=== PATIENT | male | born 1980 | race African-American/Black ===

== ENCOUNTER 2017-03-02 08:40 | Emergency (ER) | payer OTHER ==
[~2017-03-02] VITALS: Ht 170.2 cm; Wt 52.8 kg
[2017-03-02] MEDS ORDERED: TYLENOL WITH C1 EACH PO (11:09)
[2017-03-02] MEDS ORDERED: ERYTHROMYC1 APPLICAT LEFT EYE (11:09)
[2017-03-02 11:31] VITALS: BP 156/108
== END 2017-03-02 11:32 | disposition home or self-care (01) ==
LOC: EME → EDBD 08:40 → EME 08:40
DX: S02.92XA Unspecified fracture of facial bones, initial encounter for closed fracture (principal); S02.2XXA Fracture of nasal bones, initial encounter for closed fracture; S05.12XA Contusion of eyeball and orbital tissues, left eye, initial encounter; H11.32 Conjunctival hemorrhage, left eye; W18.30XA Fall on same level, unspecified, initial encounter; Y93.41 Activity, dancing; F17.200 Nicotine dependence, unspecified, uncomplicated
CPT/HCPCS: 70450; 70486; 99281; 99284

== ENCOUNTER 2017-11-22 12:42 | Emergency (ER) | payer OTHER ==
[~2017-11-22] VITALS: Ht 170.2 cm; Wt 57.4 kg
[~2017-11-22 12:42] MED LIST: ERYTHROMYC1 APPLICAT LEFT EYE; TYLENOL WITH C1 EACH PO
[2017-11-22] MEDS ORDERED: NORCO 5/3251 TABLET PO (13:47)
[2017-11-22 14:06] VITALS: BP 115/84
== END 2017-11-22 14:07 | disposition home or self-care (01) ==
LOC: EME 12:42
DX: S00.83XA Contusion of other part of head, initial encounter (principal); S39.012A Strain of muscle, fascia and tendon of lower back, initial encounter; S06.9X9A Unspecified intracranial injury with loss of consciousness of unspecified duration, initial encounter; Y00.XXXA Assault by blunt object, initial encounter; F17.200 Nicotine dependence, unspecified, uncomplicated; Z88.6 Allergy status to analgesic agent
CPT/HCPCS: 70450; 72100; 99281; 99284

== ENCOUNTER 2017-12-12 21:02 | Emergency (ER) | payer OTHER ==
[~2017-12-12] VITALS: Ht 170.2 cm; Wt 58.4 kg
[~2017-12-12 21:02] MED LIST changes: +NORCO 5/3251 TABLET PO
[2017-12-13] MEDS ORDERED: FIORICET 50-301 EAC1 PO (02:31)
[2017-12-13 02:40] VITALS: BP 150/92
== END 2017-12-13 02:44 | disposition home or self-care (01) ==
LOC: EME 21:02
DX: F07.81 Postconcussional syndrome (principal); S63.91XA Sprain of unspecified part of right wrist and hand, initial encounter; W22.8XXA Striking against or struck by other objects, initial encounter; H26.9 Unspecified cataract; F17.200 Nicotine dependence, unspecified, uncomplicated; Z88.6 Allergy status to analgesic agent
CPT/HCPCS: 70450; 73130; 99281; 99283

== ENCOUNTER 2018-01-31 11:56 | Emergency (ER) | payer OTHER ==
[~2018-01-31] VITALS: Ht 170.2 cm; Wt 62.2 kg
[~2018-01-31 11:56] MED LIST changes: +FIORICET 50-301 EAC1 PO
[2018-01-31 12:37] LABS: APPEARANCE CLEAR ((CLEAR)); BILIRUBIN NEGATIVE; BLOOD NEGATIVE; COLOR STRAW ((YELLOW)); GLUCOSE (STRIP) NEGATIVE; KETONES NEGATIVE; LEUKOCYTES NEGATIVE; NITRITE NEGATIVE; PROTEIN (STRIP) NEGATIVE; SPECIFIC GRAVITY 1.009 (1.000-1.030); UROBILINOGEN 0.2 MG/DL (0.2-1.0)
[2018-01-31 12:41] LABS: HEMATOCRIT 41.6 % (38.0-50.0); HEMOGLOBIN 14.6 G/DL (12.5-16.6); MCH 30.9 PG (29.0-34.0); MCHC 35.1 G/DL (30.0-36.0); MCV 87.9 FL (86-99); PLATELET COUNT 249 K/uL (156-360); RBC DIS.WIDTH-CV 12.8 % (11.8-14.6); RBC DIS.WIDTH-SD 41.5 % (39-53); RED BLOOD COUNT 4.73 M/uL (4.00-5.50); WHITE BLOOD COUNT 6.8 K/uL (4.1-10.2)
[2018-01-31 12:53] LABS: CHLORIDE 103 mEq/L (99-109); POTASSIUM 4.3 mEq/L (3.7-5.4); SODIUM 138 mEq/L (136-147)
[2018-01-31 12:55] LABS: GLUCOSE 89 mg/dL (70-99)
[2018-01-31 12:59] LABS: CREATININE 0.9 mg/dL (0.6-1.3); GFR ESTIMATE (CALCULATED) > 59 mL/min/ (58.99-99999); UREA NITROGEN (BUN) 13 mg/dL (9-23)
[2018-01-31] MEDS ORDERED: FLEXERIL10 MG PO (13:42)
[2018-01-31] MEDS ORDERED: MEDROL DOSEPAK4 MG PO (13:42)
[2018-01-31 14:05] VITALS: BP 138/98
== END 2018-01-31 14:06 | disposition home or self-care (01) ==
LOC: EME 11:56
PROVIDERS: Emergency Medicine
DX: M54.5 Low back pain (principal); K92.1 Melena
CPT/HCPCS: 72131; 74176; 80048; 81003; 85027; 87086; 99281; 99284

== ENCOUNTER 2018-02-16 15:52 | Emergency (ER) | payer OTHER ==
[~2018-02-16] VITALS: Ht 165.1 cm; Wt 58.7 kg
[~2018-02-16 15:52] MED LIST changes: +FLEXERIL10 MG PO; +MEDROL DOSEPAK4 MG PO
[2018-02-16] MEDS ORDERED: ULTRACET1 TABLET PO (17:03)
[2018-02-16 17:20] VITALS: BP 133/92
== END 2018-02-16 17:24 | disposition home or self-care (01) ==
LOC: EME 15:52 → EXP 15:52
DX: M54.5 Low back pain (principal); G89.29 Other chronic pain; Z88.6 Allergy status to analgesic agent
CPT/HCPCS: 99281; 99284

== ENCOUNTER 2018-03-15 11:47 | Emergency (ER) | payer OTHER ==
[~2018-03-15] VITALS: Ht 170.2 cm; Wt 56.6 kg
[~2018-03-15 11:47] MED LIST changes: +ULTRACET1 TABLET PO
[2018-03-15 12:12] LABS: HEMATOCRIT 42.5 % (38.0-50.0); HEMOGLOBIN 14.9 G/DL (12.5-16.6); MCH 30.7 PG (29.0-34.0); MCHC 35.1 G/DL (30.0-36.0); MCV 87.6 FL (86-99); PLATELET COUNT 330 K/uL (156-360); RBC DIS.WIDTH-CV 13.2 % (11.8-14.6); RBC DIS.WIDTH-SD 42.3 % (39-53); RED BLOOD COUNT 4.85 M/uL (4.00-5.50); WHITE BLOOD COUNT 8.3 K/uL (4.1-10.2)
[2018-03-15 12:30] LABS: ALBUMIN 3.9 g/dL (3.2-4.8)
[2018-03-15 12:31] LABS: CHLORIDE 107 mEq/L (99-109); POTASSIUM 3.9 mEq/L (3.7-5.4); SODIUM 142 mEq/L (136-147)
[2018-03-15 12:33] LABS: GLUCOSE 112 mg/dL (70-99); TOTAL PROTEIN 6.1 g/dL (6.4-8.3)
[2018-03-15 12:35] LABS: TOTAL BILIRUBIN 0.2 mg/dL (0.0-1.0)
[2018-03-15 12:36] LABS: ALKALINE PHOSPHATASE 50 IU/L (3-129)
[2018-03-15 12:37] LABS: CREATININE 0.8 mg/dL (0.6-1.3); GFR ESTIMATE (CALCULATED) > 59 mL/min/ (58.99-99999)
[2018-03-15 12:38] LABS: AST (GOT) 21 IU/L (2-34); UREA NITROGEN (BUN) 7 mg/dL (9-23)
[2018-03-15 12:40] LABS: ALT (GPT) 22 IU/L (3-49)
[2018-03-15 13:24] LABS: APPEARANCE CLEAR ((CLEAR)); BILIRUBIN NEGATIVE; BLOOD NEGATIVE; COLOR YELLOW ((YELLOW)); GLUCOSE (STRIP) NEGATIVE; KETONES NEGATIVE; LEUKOCYTES NEGATIVE; NITRITE NEGATIVE; PROTEIN (STRIP) 30; SPECIFIC GRAVITY 1.017 (1.000-1.030); UCUL ADDED? NO; UROBILINOGEN 0.2 MG/DL (0.2-1.0)
[2018-03-15 13:47] LABS: LIPASE 6 U/L (1.0-51.0)
[2018-03-15] MEDS ORDERED: BENTYL10 MG PO (13:52)
[2018-03-15 14:37] VITALS: BP 118/88
== END 2018-03-15 14:38 | disposition home or self-care (01) ==
LOC: EME 11:47
DX: R10.30 Lower abdominal pain, unspecified (principal); F17.200 Nicotine dependence, unspecified, uncomplicated; Z87.2 Personal history of diseases of the skin and subcutaneous tissue; Z95.9 Presence of cardiac and vascular implant and graft, unspecified; Z98.890 Other specified postprocedural states; Z88.6 Allergy status to analgesic agent
CPT/HCPCS: 80053; 81003; 83690; 85027; 99281; 99285; J0780; J1200

== ENCOUNTER 2018-04-05 18:21 | Emergency (ER) | payer OTHER ==
[~2018-04-05] VITALS: Ht 177.8 cm; Wt 56.8 kg
[~2018-04-05 18:21] MED LIST changes: +BENTYL10 MG PO
[2018-04-05 20:41] VITALS: BP 130/71
== END 2018-04-05 20:43 | disposition home or self-care (01) ==
LOC: EME 18:21
DX: S30.0XXA Contusion of lower back and pelvis, initial encounter (principal); G89.29 Other chronic pain; Y04.0XXA Assault by unarmed brawl or fight, initial encounter; Z88.6 Allergy status to analgesic agent; F17.200 Nicotine dependence, unspecified, uncomplicated
CPT/HCPCS: 71046; 99281; 99284

== ENCOUNTER 2018-05-07 21:13 | Emergency (ER) | payer OTHER ==
[~2018-05-07] VITALS: Ht 170.2 cm; Wt 56.3 kg
[2018-05-07 22:09] LABS: BASOPHIL (%) 0.8 % (0-1); BASOPHIL COUNT 0.1 K/uL (0-0.1); EOSINOPHIL (%) 4.2 % (0-5); EOSINOPHIL COUNT 0.3 K/uL (0-0.3); HEMATOCRIT 39.3 % (38.0-50.0); HEMOGLOBIN 13.7 G/DL (12.5-16.6); IMMATURE GRANULOCYTE (%) 0.2 % (0.0-0.7); LYMPHOCYTE COUNT 2.7 K/uL (1.0-2.8); MCH 30.9 PG (29.0-34.0); MCHC 34.9 G/DL (30.0-36.0); MCV 88.7 FL (86-99); MONOCYTE (%) 8.3 % (3-12); MONOCYTE COUNT 0.5 K/uL (0-0.8); NEUTROPHIL (%) 43.5 % (45-76); NEUTROPHIL COUNT 2.7 K/uL (1.8-6.4); PLATELET COUNT 198 K/uL (156-360); RBC DIS.WIDTH-CV 12.1 % (11.8-14.6); RBC DIS.WIDTH-SD 39.4 % (39-53); RED BLOOD COUNT 4.43 M/uL (4.00-5.50); WHITE BLOOD COUNT 6.3 K/uL (4.1-10.2)
[2018-05-07 22:21] LABS: CHLORIDE 107 mEq/L (99-109); POTASSIUM 4.1 mEq/L (3.7-5.4); SODIUM 144 mEq/L (136-147)
[2018-05-07 22:23] LABS: GLUCOSE 81 mg/dL (70-99)
[2018-05-07 22:27] LABS: CREATININE 0.9 mg/dL (0.6-1.3); GFR ESTIMATE (CALCULATED) > 59 mL/min/ (58.99-99999); UREA NITROGEN (BUN) 13 mg/dL (9-23)
[2018-05-07 22:59] VITALS: BP 137/91
== END 2018-05-07 23:00 | disposition left against medical advice (07) ==
LOC: EME → EDSEX 21:13 → EDBD 21:13 → EME 21:13
PROVIDERS: Emergency Medicine
DX: R55 Syncope and collapse (principal); R42 Dizziness and giddiness; F17.200 Nicotine dependence, unspecified, uncomplicated; Z53.29 Procedure and treatment not carried out because of patient's decision for other reasons
CPT/HCPCS: 80048; 85025; 93005; 99281; 99284

== ENCOUNTER 2018-06-06 10:53 | Emergency (ER) | payer OTHER ==
[~2018-06-06] VITALS: Ht 170.2 cm; Wt 56.8 kg
[2018-06-06 10:55] VITALS: BP 136/91
== END 2018-06-06 12:02 | disposition left against medical advice (07) ==
LOC: EME 10:53
DX: H57.10 Ocular pain, unspecified eye (principal); R53.1 Weakness; Z53.21 Procedure and treatment not carried out due to patient leaving prior to being seen by health care provider